=== PATIENT | female | born 1965 | race American Indian/Alaskan Native ===

== ENCOUNTER 2021-03-31 07:54 | Day surgery (SDC) | payer BC ==
[2021-03-24 11:20] LABS: Hemoglobin 11.8 gm/dl (10.1-14.3); Mean Corpuscular HGB Conc 33 % (30-34); Mean Corpuscular Volume 83 fl (79-97); Platelet Count 397 K/mm3 (140-440); Red Blood Count 4.36 M/mm3 (3.65-5.03); Red Cell Distribution Width 15.2 % (13.2-15.2)
[2021-03-24 11:39] LABS: BUN/Creatinine Ratio 16; Blood Urea Nitrogen 13 mg/dL (7-17); Calcium 9.4 mg/dL (8.4-10.2); Hemolysis Index 1
--- NOTE | 2021-03-31 07:39 | History and Physical Report ---
History of Present Illness Date of examination: 03/31/21 Chief complaint: surgery History of present illness: Patient is a 55 yo with AUb-L,P presenting for hysteroscopic myomectomy and polypectomy. Voices no complaints. Notes history of heavy, prolonged menses requiring 3 overnight pads on her heaviest days. Notes some dysmenorrhea. Desires managment of symptoms. 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 Social history: no significant social history - Obstetrical History : 4 Para: 4 Hx # Term Pregnancies: 4 Number of Pregnancies: 0 Spontaneous Abortions: 0 Induced : 0 Medications and Allergies Allergies Allergy/AdvReac Type Severity Reaction Status Date / Time No Known Allergies Allergy Unverified 03/23/21 15:13 Home Medications Medication Instructions Recorded Confirmed Last Taken Type amLODIPine 5 mg PO DAILY 03/23/21 03/23/21 Unknown History Review of Systems Genitourinary: pelvic pain, other (menorrhagia) - Physical Exam Cardiovascular: Regular rate, Normal S1, Normal S2 Lungs: Positive: Clear to auscultation, Normal air movement Abdomen: Positive: normal appearance, soft, normal bowel sounds Genitourinary (Female): Positive: normal external genitalia Vagina: Positive: normal moisture Uterus: Positive: normal size Results Result Diagrams: 03/24/21 07:56 03/24/21 10:55 All other labs normal. Assessment and Plan Patient with endometrial polyp and submucosal fibroid noted on imaging EMS notable for polyp, negative for malignancy Patient desires to proceed with hysterosopic myomectomy and polypectomy Risks of procedure reviewed including pain, bleeding, infection, damage to surrounding tissues and structures, uterine perforation, need for further procedures. Procedure consents signed - Patient Problems (1) Fibroid, uterine Status: Chronic Qualifiers: Uterine leiomyoma location: submucous Qualified Code(s): D25.0 - Submucous leiomyoma of uterus (2) Abnormal uterine bleeding due to endometrial polyp Status: Chronic (3) Menorrhagia Status: Chronic
[2021-03-31] MEDS ORDERED: LACTATED RINGERS 1,000 ML ONE (08:33)
[2021-03-31] MEDS ORDERED: ONDANSETRON 4 MG/2 ML INJ IV PRN (09:05)
[2021-03-31] MEDS ORDERED: HYDROmorphone 1 MG/1 ML INJ IV PRN ×2 (09:05)
--- NOTE | 2021-03-31 09:06 | Anesthesia Day of Surgery ---
Anesthesia Day of Surgery - Day of Surgery Patient Examined: Yes Patient H&P Reviewed: Yes Patient is NPO: Yes
--- NOTE | 2021-03-31 09:07 | Anesthesia Consultation ---
Anesthesia Consult and Med Hx Date of service: 03/31/21 - Airway Anesthetic Teeth Evaluation: Chipped (Missing and broken) ROM Head & Neck: Adequate Mental/Hyoid Distance: Adequate Mallampati Class: Class II Intubation Access Assessment: Good - Pre-Operative Health Status ASA Pre-Surgery Classification: ASA2 Proposed Anesthetic Plan: General - Pulmonary Hx Smoking: No - Cardiovascular System Hx Hypertension: Yes - Central Nervous System Hx Psychiatric Problems: No - Gastrointestinal Hx Gastroesophageal Reflux Disease: No - Hematic Hx Sickle Cell Disease: No - Other Systems Hx Cancer: No
[2021-03-31] MEDS ORDERED: LACTATED RINGERS 1,000 ML IV SCH (09:15)
[2021-03-31] MEDS ORDERED: MIDAZOLAM 2 MG/2 ML INJ IV NR (10:00)
[2021-03-31] MEDS ORDERED: fentaNYL 100 MCG/2 ML INJ ONE (11:21)
[2021-03-31] MEDS ORDERED: propofoL 200 MG/20 ML VIAL IV ONE (11:21)
[2021-03-31] MEDS ORDERED: MIDAZOLAM 2 MG/2 ML INJ ONE (11:21)
[2021-03-31] MEDS ORDERED: LIDOCAINE MPF (2%) 20 MG/1 ML VIAL 5 ML ONE (11:21)
[2021-03-31] MEDS ORDERED: ePHEDrine SULFATE 50 MG/1 ML INJ ONE (12:28)
[2021-03-31] MEDS ORDERED: SODIUM CHLORIDE 0.9% IRRIG SOLN 2000 ML IR ONE (12:45)
--- NOTE | 2021-03-31 12:55 | Operative Report ---
Operative Report Operative Report: Pre-op diagnosis: AUB-L, polyp Post-op diagnosis: other (AUB-L) Findings: Four submucosal fibroids noted within the cavity of varying sizes. Largest approximately 2-3 cm, but appeared to have intramural component. Proliferative endometrium. Procedure: Hysteroscopy D&C, myomectomy Anesthesia: GETA Surgeon: CHRIS MÉNDEZ Estimated blood loss: minimal Pathology: list (leiomyoma, endometrial curettings) Specimen disposition: to lab Condition: stable Disposition: PACU Technique: Risks, benefits and alternatives discussed with the patient at length. Informed consent was obtained. The patient was taken to the operating room and general anesthesia was obtained without difficulty. She was prepped and draped in the normal sterile fashion in lithotomy position in yellowfin stirrups. Speculum was placed inside the vagina. The anterior lip of the cervix was grasped with single-tooth tenaculum. The cervix was gently dilated to accommodate the 6.5 mm hysteroscope. Above findings were noted. The Myosure device was introduced through the operative port of the scope. Three of the four fibroids were removed completely using the device. The submucosal component of a fourth fibroid was also removed with the device.. Sharp curettage followed. EMC obtained and sent to pathology. All instruments removed from the patients vagina. Hemostasis was noted from the tenaculum site. The patient was taken to the recovery room in stable condition.
--- NOTE | 2021-03-31 13:00 | Short Stay Summary ---
Short Stay Documentation Date of service: 03/31/21 Narrative H&P: Patient 55 yo with AUB-L,P presenting for hysteroscopy D&C with myomectomy and polypectomy. Notes heavy menses requiring 3 overnight pads on heaviest days. Also endorses dysmenorrhea. - History Principal diagnosis: AUB-L,P H&P: obtained from office Past Medical History: hypertension Past Surgical History: No surgical history Social history: no significant social history - Allergies and Medications Current Medications: Allergies No Known Allergies Allergy (Unverified 03/23/21 15:13) Home Medications Medication Instructions Recorded Confirmed Last Taken Type amLODIPine 5 mg PO DAILY 03/23/21 03/23/21 Unknown History Acetaminophen with Codeine 1 each PO Q6HR PRN 1 Days #4 03/31/21 Unknown Rx [Acetaminophen-Codeine #2 TAB] Ibuprofen [Motrin 800 MG tab] 800 mg PO Q8HR #30 tablet 03/31/21 Unknown Rx Active Medications Hydromorphone HCl (Hydromorphone 1 Mg/1 Ml Inj) 0.25 mg IV Q10MIN PRN PRN Reason: Pain, Moderate (4-6) Hydromorphone HCl (Hydromorphone 1 Mg/1 Ml Inj) 0.5 mg IV Q10MIN PRN PRN Reason: Pain , Severe (7-10) Lactated Ringer's (Lactated Ringers) 1,000 mls @ 125 mls/hr IV DIRECT ITZEL Midazolam HCl (Midazolam 2 Mg/2 Ml Inj) 2 mg IV PREOP NR Stop: 03/31/21 23:59 Ondansetron HCl (Ondansetron 4 Mg/2 Ml Inj) 4 mg IV ONCE PRN PRN Reason: Nausea And Vomiting - Physical exam General appearance: no acute distress Lungs: Clear to auscultation Gastrointestinal: normal Female Genitourinary: normal - Brief post op/procedure progress note Date of procedure: 03/31/21 Pre-op diagnosis: AUB-L, P Post-op diagnosis: other (AUB-L) Anesthesia: GETA Findings: Four leiomyoma of varying sizes, largest 2-3 cm with intramural component. Proliferative endometrium. Surgeon: CHRIS MÉNDEZ Estimated blood loss: minimal Pathology: list (leiomyoma, endometrial curettings) Specimen disposition: to lab Condition: stable - Hospital course Hospital course: Patient 55 yo with AUB-L,P presenting for hysteroscopy D&C with myomectomy and polypectomy. To OR for procedure. See operative report for additional details. Patient tolerated procedure well. - Disposition Condition at discharge: Good Disposition: 01 HOME / SELF CARE / HOMELESS - Discharge Diagnoses (1) Fibroid, uterine Status: Chronic Qualifiers: Uterine leiomyoma location: submucous Qualified Code(s): D25.0 - Submucous leiomyoma of uterus (2) Abnormal uterine bleeding due to endometrial polyp Status: Chronic (3) Menorrhagia Status: Chronic Short Stay Discharge Plan Activity: other (Nothing in the vagina for 4 weeks. ) Weight Bearing Status: Full Weight Bearing Diet: low salt Follow up with: CHRIS ÉMNDEZ MD [Staff Physician] - 7 Days Prescriptions: Acetaminophen with Codeine [Acetaminophen-Codeine #2 TAB] 1 each PO Q6HR PRN 1 Days #4 PRN Reason: Pain Ibuprofen [Motrin 800 MG tab] 800 mg PO Q8HR #30 tablet
[2021-03-31] MEDS ORDERED: HYDROcodone/ACETAMINOPHEN 5-325 MG TAB PO PRN (14:33)
[2021-03-31 16:26] VITALS: BP 125/81
--- NOTE | 2021-03-31 19:25 | Post Anesthesia Evaluation ---
- Post Anesthesia Evaluation Patient Participated: Yes Airway Patent: Yes Stable Respiratory Function: Yes Nausea/Vomiting: No Temp > 96.8F: Yes Pain Manageable: Yes Adequeate Hydration: Yes Anesthesia Complications: No Block Receding Appropriately: Not Applicable Patient on Ventilator: No
== END 2021-03-31 15:00 | disposition home or self-care (01) ==
LOC: OR 07:54
PROVIDERS: ATTEND Obstetrics & Gynecology
DX: N93.8 Other specified abnormal uterine and vaginal bleeding (principal); N84.0 Polyp of corpus uteri; N92.0 Excessive and frequent menstruation with regular cycle; I10 Essential (primary) hypertension; Z20.822 Contact with and (suspected) exposure to COVID-19; Z79.899 Other long term (current) drug therapy; Z98.890 Other specified postprocedural states
CPT/HCPCS: 36415; 58558; 80048; 81025; 85027; 88305; J2250; J2704; J3010; J3490; J7120; U0003